=== PATIENT | male | born 1990 | race Caucasian/White ===

== ENCOUNTER 2022-01-14 14:59 | Inpatient (IN) | payer OTHER ==
[~2022-01-14] VITALS: Ht 188 cm; Wt 65.0 kg
[2022-01-14] MEDS ORDERED: AUGMENTIN 500-500 MG PO (15:45)
[2022-01-14] MEDS ORDERED: PROAIR HFA8.5 GM INH (15:46)
[2022-01-14] MEDS ORDERED: AZELASTINE137 MCG/0. (15:47)
[2022-01-14] MEDS ORDERED: MONTELUKAST SOD10 MG PO (15:48)
[2022-01-14] MEDS ORDERED: PREDNISONE20 MG PO (16:52)
[2022-01-14] MEDS ORDERED: ADVAIR 500-501 EACH INH (16:54)
[2022-01-14] MEDS ORDERED: EPINEPHRINE INJ (17:27)
[2022-01-14 17:38] LABS: WHITE BLOOD COUNT 20.4 K/UL (4.5-11.0)
[2022-01-14 17:39] LABS: HEMOGLOBIN 14.2 gm/dl (14.0-17.5); RED BLOOD COUNT 4.8 M/UL (4.20-5.50)
[2022-01-14 17:54] LABS: BUN/CREATININE RATIO 18 (0-10)
[2022-01-14 19:34] LABS: BORDETELLA PARAPERTUSSIS Not Detected (Not Detectd); BORDETELLA PERTUSSIS Not Detected (Not Detectd); CHLAMYDIA PNEUMONIAE Not Detected (Not Detectd); CORONAVIRUS HKU1 Not Detected (Not Detectd); CORONAVIRUS NL63 Not Detected (Not Detectd); CORONAVIRUS OC43 Not Detected (Not Detectd); CORONOAVIRUS 229E Not Detected (Not Detectd); HUMAN METAPNEUMOVIRUS Not Detected (Not Detectd); HUMAN RHINOVIRUS/ENTEROVIRUS Not Detected (Not Detectd); INFLUENZA A Not Detected (Not Detectd); INFLUENZA B Not Detected (Not Detectd); MYCOPLASMA PNEUMONIAE Not Detected (Not Detectd); PARAINFLUENZA VIRUS 1 Not Detected (Not Detectd); PARAINFLUENZA VIRUS 2 Not Detected (Not Detectd); PARAINFLUENZA VIRUS 3 Not Detected (Not Detectd); PARAINFLUENZA VIRUS 4 Not Detected (Not Detectd); RESPIRATORY SYNCYTIAL VIRUS Not Detected (Not Detectd)
[2022-01-14 20:34] LABS: SARS-CoV-2 NOT DETECTED (Not Detectd)
[2022-01-15 02:48] LABS: HEMOGLOBIN 12.7 gm/dl (14.0-17.5)
[2022-01-15 02:50] LABS: RED BLOOD COUNT 4.23 M/UL (4.20-5.50); WHITE BLOOD COUNT 11.3 K/UL (4.5-11.0)
[2022-01-15 03:10] LABS: BUN/CREATININE RATIO 15 (0-10)
[2022-01-16 05:28] LABS: HEMOGLOBIN 13.9 gm/dl (14.0-17.5); RED BLOOD COUNT 4.71 M/UL (4.20-5.50); WHITE BLOOD COUNT 23.7 K/UL (4.5-11.0)
[2022-01-16 06:16] LABS: BUN/CREATININE RATIO 22 (0-10)
--- NOTE | 2022-01-16 19:00 | NUR ---
ALL SEIZURE PRECAUTIONS ARE IN PLACE.
[2022-01-17 06:35] LABS: HEMOGLOBIN 14.6 gm/dl (14.0-17.5); RED BLOOD COUNT 4.87 M/UL (4.20-5.50); WHITE BLOOD COUNT 20.9 K/UL (4.5-11.0)
[2022-01-17 07:07] LABS: BUN/CREATININE RATIO 23 (0-10)
[2022-01-17] MEDS ORDERED: IPRAT-ALBUT 0.5-3 ML NEB (11:46)
[2022-01-17] MEDS ORDERED: ZYVOX600 MG PO (11:46)
[2022-01-17] MEDS ORDERED: EPINEPHRINE INJ (11:46)
[2022-01-17] MEDS ORDERED: ADVAIR 500-501 EACH INH (11:46)
[2022-01-17] MEDS ORDERED: PREDNISONE20 MG PO (11:46)
[2022-01-17] MEDS ORDERED: COMBIVENT RESPIM4 GM INH (11:46)
[2022-01-17 15:11] LABS: BABESIA MICROTI IGG <1:10 (Neg:<1:10); BABESIA MICROTI IGM <1:10 (Neg:<1:10)
[2022-01-17 16:13] LABS: E. CHAFFEENSIS (HME) IGG TITER Negative (Neg:<1:64); E. CHAFFEENSIS (HME) IGM TITER Negative (Neg:<1:20)
[2022-01-18 05:39] LABS: HEMOGLOBIN 14.9 gm/dl (14.0-17.5); RED BLOOD COUNT 5.03 M/UL (4.20-5.50); WHITE BLOOD COUNT 16.1 K/UL (4.5-11.0)
[2022-01-18 06:07] LABS: BUN/CREATININE RATIO 28 (0-10)
== END 2022-01-18 10:10 | disposition home or self-care (01) | DRG 208 ==
LOC: ER1 14:59 → CCU 15:58 → CDU 15:58 → MED SURG 4 15:58 → CCU 17:04 → MED SURG 4 01-16 17:22
PROVIDERS: Emergency Medicine; Internal Medicine; ADMIT Internal Medicine
PROC: 0BH17EZ Insertion of Endotracheal Airway into Trachea, Via Natural or Artificial Opening (ICD-10-PCS; principal; 2022-01-14)
PROC: 5A1945Z Respiratory Ventilation, 24-96 Consecutive Hours (ICD-10-PCS; 2022-01-14)
PROC: 0BH17EZ Insertion of Endotracheal Airway into Trachea, Via Natural or Artificial Opening (ICD-10-PCS; 2022-01-16)
PROC: 5A1935Z Respiratory Ventilation, Less than 24 Consecutive Hours (ICD-10-PCS; 2022-01-16)
DX: J69.0 Pneumonitis due to inhalation of food and vomit (principal); J96.01 Acute respiratory failure with hypoxia; J96.02 Acute respiratory failure with hypercapnia; Z20.822 Contact with and (suspected) exposure to COVID-19; J45.901 Unspecified asthma with (acute) exacerbation; E87.2 Acidosis; J32.4 Chronic pansinusitis; J98.2 Interstitial emphysema; R73.9 Hyperglycemia, unspecified; E87.6 Hypokalemia; Z88.6 Allergy status to analgesic agent
CPT/HCPCS: 31500; 36415; 36600; 51702; 70450; 71045; 71250; 80048; 80053; 80202; 80307; 81001; 82550; 82553; 82785; 82803; 82962; 83036; 83605; 83735; 84484; 85025; 85027; 86618; 86666; 86753; 87040; 87070; 87077; 87081; 87086; 87186; 87205; 87633; 93005; 94002; 94003; 94640; 94664; 94760; 96372; 96374; 96375; 99285; C9113; J0171; J1200; J1650; J2060; J2250; J2405; J2543; J2704; J2930; J3370; J3475; J7030; J7070; U0002